=== PATIENT | female | born 1975 | race African-American/Black ===

== ENCOUNTER → 2018-02-19 | Emergency (ER) | payer OTHER ==
[~2018-02-19] VITALS: Ht 167.6 cm; Wt 127.0 kg
== END | disposition home or self-care (01) ==
LOC: ER 13:47
DX: S83.92XA Sprain of unspecified site of left knee, initial encounter (principal); X50.3XXA Overexertion from repetitive movements, initial encounter; Y93.89 Activity, other specified; Y92.89 Other specified places as the place of occurrence of the external cause; Y99.8 Other external cause status

== ENCOUNTER 2023-12-18 13:02 | Outpatient (CLI) | payer OTHER | END 2023-12-18 13:06 | disposition home or self-care (01) | LOC: NUCLEAR 13:02 | PROVIDERS: ATTEND Specialist | DX: M81.0 Age-related osteoporosis without current pathological fracture (principal) ==

== ENCOUNTER 2024-02-12 08:24 | Outpatient (CLI) | payer OTHER | END 2024-02-12 08:36 | disposition home or self-care (01) | LOC: SONOGRAMA 08:24 | PROVIDERS: ATTEND Internal Medicine Gastroenterology | DX: K80.20 Calculus of gallbladder without cholecystitis without obstruction (principal) ==